=== PATIENT | male | born 1960 | race Caucasian/White ===

== ENCOUNTER → 2024-11-25 | Outpatient (CLI) | payer OTHER ==
--- NOTE | 2024-11-25 11:17 | HMCIMG ---
CT HEART SAVER PROMOTIONAL HISTORY: Cardiac calcification scoring. FINDINGS: The cardiac calcification scoring is 19.1. LM = 7.4, LAD = 10.6, and CX = 1.1. Limited examination of the heart was performed. The study is done for additional or incidental findings. IMPRESSION: Miniscule splenic calcifications likely related to prior granulomatous disease process. Subcentimeter calcified granuloma anteroinferior left upper lobe. No other additional findings.
== END | disposition home or self-care (01) ==
LOC: RAH 07:36
PROVIDERS: ATTEND Internal Medicine
DX: Z13.6 Encounter for screening for cardiovascular disorders (principal)
CPT/HCPCS: 75571